=== PATIENT | male | born 1990 | race Caucasian/White ===

== ENCOUNTER 2017-07-07 15:56 | Emergency (ER) | payer SELFPAY ==
[2017-07-07 17:11] VITALS: BP 123/60
[2017-07-07] MEDS ORDERED: BOOSTRIX IM ONE (18:43)
--- NOTE | 2017-07-07 18:48 | Emergency Department Report ---
ED Laceration HPI - HPI Chief Complaint: Fall Stated Complaint: LAC TO LOWER BACK Time Seen by Provider: 07/07/17 18:38 Occurred When: Today Severity: mild Tetanus Status: Not up to Date Laceration Symptoms: No Foreign Body Sensation, No Numbness, No Weakness, No Pain Other History: This is a 26-year-old male nontoxic, well nourished in appearance , no acute signs of distress presents to the ED with c/o of superficial abrasion. Patient stated that he was on a glass table which broke and caused an abrasion to the right buttock region. Patient denies any numbness, tingling , fever, chills, nausea, vomiting, chest pain shortness of breath. Patient denies sensation of foreign body. Patient denies any allergies or significant past medical history. Denies tetanus. ED Review of Systems ROS: Stated complaint: LAC TO LOWER BACK Other details as noted in HPI Constitutional: denies: chills, fever Eyes: denies: eye pain, eye discharge, vision change ENT: denies: ear pain, throat pain Respiratory: denies: cough, shortness of breath, wheezing Cardiovascular: denies: chest pain, palpitations Endocrine: no symptoms reported Gastrointestinal: denies: abdominal pain, nausea, diarrhea Genitourinary: denies: urgency, dysuria Musculoskeletal: denies: back pain, joint swelling, arthralgia Skin: denies: rash, lesions Neurological: denies: headache, weakness, paresthesias Psychiatric: denies: anxiety, depression Hematological/Lymphatic: denies: easy bleeding, easy bruising ED Past Medical Hx - Past Medical History Previous Medical History?: Yes Additional medical history: Bronchitis - Surgical History Past Surgical History?: No - Social History Smoking Status: Never Smoker Substance Use Type: Non Opiate Pain - Medications Home Medications: Home Medications Medication Instructions Recorded Confirmed Last Taken Type Ibuprofen [Motrin] 800 mg PO Q8H PRN #14 tablet 12/11/13 Unknown Rx Ibuprofen [Motrin] 600 mg PO Q8H PRN #20 tablet 03/21/14 Unknown Rx traMADol [Ultram] 50 mg PO Q6HR PRN #14 tablet 03/21/14 Unknown Rx Ibuprofen [Motrin] 600 mg PO Q8H PRN #30 tablet 07/07/17 Unknown Rx Sulfamethoxazole/Trimethoprim 1 each PO BID #14 tablet 07/07/17 Unknown Rx [Bactrim DS TAB] Laceration Physical Exam - Exam General: Vital signs noted. No distress. Alert and acting appropriately. GENERAL: The patient is a well-developed, well-nourished in no apparent distress. Patient is alert and acting appropriately for age. Alert and oriented 3, no apparent distress, normal gait, atraumatic. HEENT: Head is normocephalic and atraumatic. PERRL, Extraocular muscles are intact. Pupils are equal, round, and reactive to light and accommodation. Nares appeared normal. Mouth is well hydrated and without lesions. Mucous membranes are moist. Posterior pharynx clear of any exudate or lesions. Mouth is well hydrated and without lesions. Tonsils not erythematous or swollen. Uvula midline. Tongue elevated. Mucous members are moist. Posterior pharynx clear, no exudate or lesions. Patent airways. NECK: Supple. No carotid bruits. No lymphadenopathy or thyromegaly.nontender. No meningitic signs are noted. LUNGS: Clear to auscultation. Non labor breathing. No intercostal retractions. Symmetrical with respiration, no wheezing, no rales, or crackles. HEART: Regular rate and rhythm without murmur, rubs or gallops. No reproducible. S1, S2 present, regular rate and rhythm without murmur, no rubs, no gallops. ABDOMEN: Soft, nontender, and nondistended. Positive bowel sounds. No hepatosplenomegaly was noted. No guarding or rebound tenderness, negative epigastric bruit. Negative psoas sign, negative wong sign, negative McBurneys sign EXTREMITIES: Without any cyanosis, clubbing, rash, lesions or edema. Peripheral pulses intact. Capillary refill less than 2 seconds. Full range of motion bilaterally. NEUROLOGIC: Cranial nerves II through XII are grossly intact. Alert and oriented x 3. Normal gait. Symmetrical strength and sensation. Reflexes 2+ throughout. Cerebellar testing normal. GCS score of 15. PSYCHIATRIC: Normal affect with no suicidal or homicidal ideations. Skin: 2 cm superficial laceration with no signs of foreign body. Wound Length (cm): 2 Laceration Location: Other (right upper buttock region) Full Body Front + Back: 1 - 2 cm superficial lacertation Laceration Exam: Yes Normal Distal CMS, No Foreign Body, No Exposed Tendon, Vessel, or Nerve, No Tendon Injury ED Course Vital Signs 07/07/17 17:08 Temperature 97.7 F Pulse Rate 61 Respiratory 18 Rate Blood Pressure 123/60 O2 Sat by Pulse 95 Oximetry - Reevaluation(s) Reevaluation #1: 07/07/17 18:45 Patient is speaking in full sentences with no signs of distress noted. - Laceration /Wound Repair Right Buttocks Wound Length (cm): 2 Wound's Depth, Shape: superficial Wound Explored: clean Irrigated w/ Saline (ccs): 40 Betadine Prep?: Yes Wound Repaired With: Dermabond Sterile Dressing Applied?: Yes Progress: Under sterile field, I used Betadine to clean the area. I then used 40 mL of normal saline to flush the area. I then dried the area clean and applied Dermabond. I then applied a sterile 4 x 4 with tape. Minimal bleeding noted but is under control. Patient tolerated procedure well with no signs of distress. ED Medical Decision Making - Medical Decision Making 26-year-old male that presents with laceration. Patient is stable and was examined by me. Upon examination it is very superficial and not deep at all and there is no foreign body on examination. Laceration has been successfully repaired with Dermabond. Sterile dressing has been applied. Patient is discharged with Bactrim and Motrin. Tetanus booster received. Patient was instructed to proper wound care. At time of discharge, the patient does not seem toxic or ill in appearance. No acute signs of distress noted. Patient agrees to discharge treatment plan of care. No further questions noted by the patient. Critical care attestation.: If time is entered above; I have spent that time in minutes in the direct care of this critically ill patient, excluding procedure time. ED Disposition Clinical Impression: Laceration Disposition: DC-01 TO HOME OR SELFCARE Is pt being admited?: No Does the pt Need Aspirin: No Condition: Stable Instructions: Laceration (ED), Skin Adhesive Care (ED), Ibuprofen (By mouth), Sulfamethoxazole/Trimethoprim (By mouth) Additional Instructions: Follow-up with a primary care doctor in 3-5 days or if symptoms worsen and continue return to emergency room as soon as possible. Prescriptions: Ibuprofen [Motrin] 600 mg PO Q8H PRN #30 tablet PRN Reason: Pain Sulfamethoxazole/Trimethoprim [Bactrim DS TAB] 1 each PO BID #14 tablet Referrals: PRIMARY CARE, [Referring] - 3-5 Days [facility] [Outside] - 3-5 Days TIN DÍAZ MD [Staff Physician] - 3-5 Days [facility] [Outside] - 3-5 Days
== END 2017-07-07 19:25 | disposition home or self-care (01) ==
LOC: ED 15:56
DX: S31.811A Laceration without foreign body of right buttock, initial encounter (principal); W25.XXXA Contact with sharp glass, initial encounter; Y93.89 Activity, other specified; Y92.89 Other specified places as the place of occurrence of the external cause; Y99.8 Other external cause status
CPT/HCPCS: 90471; 90715; 99282

== ENCOUNTER 2018-08-03 01:03 | Emergency (ER) | payer OTHER ==
[2018-08-03] MEDS ORDERED: TETRACAINE 0.5% OU ONE (04:06)
--- NOTE | 2018-08-03 04:41 | Emergency Department Report ---
<ANNY DIAZ - Last Filed: 08/03/18 05:35> ED Eye Problem HPI - General Chief complaint: Eye Problems Stated complaint: RIGHT EYE WAS SCRATCHED Source: patient Mode of arrival: Ambulatory Limitations: No Limitations - History of Present Illness Initial comments: Pt is a 27 yo male who presents with trauma to the right eye that occurred at 6PM. The patient states he was playing soccer and says that someone poked him directly in the eye. He says that it feels like his eye was scratched. He has redness and swelling to the right upper eyelid. He denies any discharge. Pt states the eye has been watering. The patient states his vision in the right eye has been cloudy since then. - Related Data Previous Rx's Medication Instructions Recorded Last Taken Type Ibuprofen [Motrin] 800 mg PO Q8H PRN #14 tablet 12/11/13 Unknown Rx Ibuprofen [Motrin] 600 mg PO Q8H PRN #20 tablet 03/21/14 Unknown Rx traMADol [Ultram] 50 mg PO Q6HR PRN #14 tablet 03/21/14 Unknown Rx Ibuprofen [Motrin] 600 mg PO Q8H PRN #30 tablet 07/07/17 Unknown Rx Sulfamethoxazole/Trimethoprim 1 each PO BID #14 tablet 07/07/17 Unknown Rx [Bactrim DS TAB] Allergies Allergy/AdvReac Type Severity Reaction Status Date / Time No Known Allergies Allergy Verified 12/10/13 23:17 ED Past Medical Hx - Past Medical History Previous Medical History?: Yes Additional medical history: Bronchitis - Surgical History Past Surgical History?: No - Social History Smoking Status: Current Every Day Smoker Substance Use Type: None - Medications Home Medications: Home Medications Medication Instructions Recorded Confirmed Last Taken Type Ibuprofen [Motrin] 800 mg PO Q8H PRN #14 tablet 12/11/13 Unknown Rx Ibuprofen [Motrin] 600 mg PO Q8H PRN #20 tablet 03/21/14 Unknown Rx traMADol [Ultram] 50 mg PO Q6HR PRN #14 tablet 03/21/14 Unknown Rx Ibuprofen [Motrin] 600 mg PO Q8H PRN #30 tablet 07/07/17 Unknown Rx Sulfamethoxazole/Trimethoprim 1 each PO BID #14 tablet 07/07/17 Unknown Rx [Bactrim DS TAB] ED Physical Exam - General Limitations: No Limitations ED Course - Reevaluation(s) Reevaluation #1: 08/03/18 04:00 Upon initial evaluation of the pt, immediately went over to the main ED to discuss with attending Dr. Murray, Dr. Murray will take over for this patient for further management and evaluation. Concern for globe rupture. ED Disposition Clinical Impression: Corneal injury Qualifiers: Encounter type: initial encounter Laterality: right Qualified Code(s): S05.8X1A - Other injuries of right eye and orbit, initial encounter Injury of globe of right eye Qualifiers: Encounter type: initial encounter Qualified Code(s): S05.91XA - Unspecified injury of right eye and orbit, initial encounter Disposition: DC/TX-65 PSY HOSP/PSY UNIT Condition: Stable Referrals: [facility] MD MYRANDA [Primary Care Provider] - 3-5 Days <ODILIA MURRAY - Last Filed: 08/03/18 06:10> ED Review of Systems ROS: Stated complaint: RIGHT EYE WAS SCRATCHED Other details as noted in HPI ED Physical Exam - General General appearance: alert, in no apparent distress - Head Head exam: Present: atraumatic, normocephalic - Eye Pupils: Present: irregular, other (about 1 cm raised corneal laceration with irr pupil on the right.) - ENT ENT exam: Present: mucous membranes moist - Neck Neck exam: Present: normal inspection - Respiratory Respiratory exam: Present: normal lung sounds bilaterally. Absent: respiratory distress - Cardiovascular Cardiovascular Exam: Present: regular rate, normal rhythm. Absent: systolic murmur, diastolic murmur, rubs, gallop - GI/Abdominal GI/Abdominal exam: Present: soft, normal bowel sounds - Rectal Rectal exam: Present: deferred - Extremities Exam Extremities exam: Present: normal inspection - Back Exam Back exam: Present: normal inspection - Neurological Exam Neurological exam: Present: alert, oriented X3 - Psychiatric Psychiatric exam: Present: normal affect, normal mood - Skin Skin exam: Present: warm, dry, intact, normal color. Absent: rash ED Course Vital Signs 08/03/18 08/03/18 01:11 06:03 Temperature 98.2 F 97.9 F Pulse Rate 68 60 Respiratory 18 18 Rate Blood Pressure 118/52 108/55 O2 Sat by Pulse 98 98 Oximetry - Reevaluation(s) Reevaluation #1: 08/03/18 06:08 corneal lac, possible globe inj. consulted Dr. Castillo at [facility], will txfr patient for opthalmology consult. Critical care attestation.: If time is entered above; I have spent that time in minutes in the direct care o f this critically ill patient, excluding procedure time. ED Disposition Is pt being admited?: No Does the pt Need Aspirin: No
[2018-08-03 06:05] VITALS: BP 108/55
== END 2018-08-03 06:42 ==
LOC: ED 01:03
DX: S05.8X1A Other injuries of right eye and orbit, initial encounter (principal); F17.200 Nicotine dependence, unspecified, uncomplicated; W51.XXXA Accidental striking against or bumped into by another person, initial encounter; Y93.66 Activity, soccer; Y92.89 Other specified places as the place of occurrence of the external cause; Y99.8 Other external cause status

== ENCOUNTER 2018-11-09 13:11 | Emergency (ER) | payer SELFPAY ==
--- NOTE | 2018-11-09 13:22 | Emergency Department Report ---
Blank Doc - Documentation Documentation: This is a 28-year-old male that presents with right upper arm pain and tingling sensation. Denies any injuries. Patient has history of rottar cuff injury. Stated has been lifting trees at work. This initial assessment/diagnostic orders/clinical plan/treatment(s) is/are subj ect to change based on patient's health status, clinical progression and re- assessment by fellow clinical providers in the ED. Further treatment and workup at subsequent clinical providers discretion. Patient/guardians urged not to elope from the ED as their condition may be serious if not clinically assessed and managed. Initial orders include: 1- Patient sent to [facility] for further evaluation and treatment
[2018-11-09] MEDS ORDERED: IBUPROFEN PO ONE (18:30)
--- NOTE | 2018-11-09 18:35 | Emergency Department Report ---
ED Upper Extremity Inj HPI - General Chief Complaint: Extremity Problem,Nontraumatic Stated Complaint: UPPER R ARM PAIN/ NUMBNESS Time Seen by Provider: 11/09/18 13:20 Source: patient Mode of arrival: Ambulatory Limitations: No Limitations - History of Present Illness Initial Comments: 28-year-old male comes in complaining of intermittent numbness and pain to his right upper arm since Friday. Patient denies any acute injuries. 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 Patient reports when he takes a Tylenol extra strength it helps. Patient reports this worse is when he has to work. Patient reports a past medical history of rotator cuff tear. He reports that it feels tight in his bicep.. Complaint: Injury to:: right, arm Onset/Timin -: days(s) Other Extremity Injury: Arm: Right Other Injuries: none Handedness: right Place: work Severity scale (0 -10): 5 Improves With: medication (Tylenol) Worsens With: movement of extremity (lifting) Associated Symptoms: numbness (intermittent) Treatments Prior to Arrival: other (Tylenol) - Related Data Previous Rx's Medication Instructions Recorded Last Taken Type Ibuprofen [Motrin] 800 mg PO Q8H PRN #14 tablet 12/11/13 Unknown Rx Ibuprofen [Motrin] 600 mg PO Q8H PRN #20 tablet 03/21/14 Unknown Rx traMADol [Ultram] 50 mg PO Q6HR PRN #14 tablet 03/21/14 Unknown Rx Ibuprofen [Motrin] 600 mg PO Q8H PRN #30 tablet 07/07/17 Unknown Rx Sulfamethoxazole/Trimethoprim 1 each PO BID #14 tablet 07/07/17 Unknown Rx [Bactrim DS TAB] Ibuprofen [Motrin 800 MG tab] 800 mg PO Q8HR PRN #30 tablet 11/09/18 Unknown Rx Allergies Allergy/AdvReac Type Severity Reaction Status Date / Time No Known Allergies Allergy Verified 12/10/13 23:17 ED Review of Systems ROS: Stated complaint: UPPER R ARM PAIN/ NUMBNESS Other details as noted in HPI Comment: All other systems reviewed and negative ED Past Medical Hx - Past Medical History Previous Medical History?: No Additional medical history: Bronchitis - Surgical History Past Surgical History?: No - Social History Smoking Status: Never Smoker Substance Use Type: None - Medications Home Medications: Home Medications Medication Instructions Recorded Confirmed Last Taken Type Ibuprofen [Motrin] 800 mg PO Q8H PRN #14 tablet 12/11/13 Unknown Rx Ibuprofen [Motrin] 600 mg PO Q8H PRN #20 tablet 03/21/14 Unknown Rx traMADol [Ultram] 50 mg PO Q6HR PRN #14 tablet 03/21/14 Unknown Rx Ibuprofen [Motrin] 600 mg PO Q8H PRN #30 tablet 07/07/17 Unknown Rx Sulfamethoxazole/Trimethoprim 1 each PO BID #14 tablet 07/07/17 Unknown Rx [Bactrim DS TAB] Ibuprofen [Motrin 800 MG tab] 800 mg PO Q8HR PRN #30 tablet 11/09/18 Unknown Rx ED Physical Exam - General Limitations: No Limitations General appearance: alert, in no apparent distress - Head Head exam: Present: atraumatic, normocephalic - Eye Eye exam: Present: normal appearance, EOMI - ENT ENT exam: Present: mucous membranes moist - Neck Neck exam: Present: normal inspection, full ROM. Absent: tenderness - Expanded Upper Extremity Exam Right Shoulder Exam: Present: normal inspection, full ROM. Absent: tenderness, s welling Upper Arm exam: Present: full ROM. Absent: tenderness, swelling Elbow exam: Present: normal inspection, full ROM. Absent: tenderness, swelling Forearm Wrist exam: Present: normal inspection, full ROM. Absent: tenderness, swelling Vascular: Present: normal capillary refill. Absent: vascular compromise - Back Exam Back exam: Present: normal inspection - Neurological Exam Neurological exam: Present: alert, oriented X3 - Psychiatric Psychiatric exam: Present: normal affect, normal mood - Skin Skin exam: Present: warm, dry, intact, normal color. Absent: rash ED Course Vital Signs 11/09/18 13:21 Temperature 98.1 F Pulse Rate 71 Respiratory 17 Rate Blood Pressure 144/75 O2 Sat by Pulse 98 Oximetry ED Medical Decision Making - Medical Decision Making 28-year-old male comes in for numbness and pain to the right upper arm since Friday. Patient was given ibuprofen for pain management during his visit. Patient will be discharged home on ibuprofen. Critical care attestation.: If time is entered above; I have spent that time in minutes in the direct care of this critically ill patient, excluding procedure time. ED Disposition Clinical Impression: Muscle strain, upper arm Disposition: DC-01 TO HOME OR SELFCARE Is pt being admited?: No Does the pt Need Aspirin: No Condition: Stable Additional Instructions: Take pain medication as needed. I recommended stretching before lifting. Follow-up with the orthopedic provider if symptoms persist or gets worse. Prescriptions: Ibuprofen [Motrin 800 MG tab] 800 mg PO Q8HR PRN #30 tablet PRN Reason: Pain , Severe (7-10) Referrals: WILLIAM FULTON [Primary Care Provider] - 3-5 Days Forms: Work/School Release Form(ED)
[2018-11-09 18:47] VITALS: BP 136/71
== END 2018-11-09 18:46 | disposition home or self-care (01) ==
LOC: ED 13:11
DX: S46.911A Strain of unspecified muscle, fascia and tendon at shoulder and upper arm level, right arm, initial encounter (principal); Z79.1 Long term (current) use of non-steroidal anti-inflammatories (NSAID); Z79.899 Other long term (current) drug therapy; X50.0XXA Overexertion from strenuous movement or load, initial encounter; Y93.89 Activity, other specified; Y92.89 Other specified places as the place of occurrence of the external cause; Y99.8 Other external cause status
CPT/HCPCS: 99282

== ENCOUNTER 2019-03-16 15:14 | Emergency (ER) | payer SELFPAY ==
--- NOTE | 2019-03-16 15:25 | Event Note ---
ED Screening Note Date of service: 03/16/19 Time: 15:22 ED Screening Note: This is a 28 y.o. M. that presents to the ER with left sided rib pain s/p fall 2 days ago. This initial assessment/diagnostic orders/clinical plan/treatment(s) is/are subject to change based on patients health status, clinical progression and re- assessment by fellow clinical providers in the ED. Further treatment and workup at subsequent clinical providers discretion. Patient/guardian urged not to elope from the ED as their condition may be serious if not clinically assessed and managed. Initial orders include: XR left ribs
--- NOTE | 2019-03-16 16:08 | XRay Report ---
Left RIBS with PA chest, 3 views INDICATION: Left-sided chest pain without trauma today FINDINGS: The ribs are intact with no fracture or bone lesion. Accompanying chest x-ray is unremarkab le with no pneumonia, pneumothorax or pleural effusion. IMPRESSION: Negative study Signer Name: Naun Rocha MD Signed: 03/16/2019 4:04 PM Workstation Name: [id number]
--- NOTE | 2019-03-16 18:39 | Emergency Department Report ---
ED General Adult HPI - General Chief complaint: Fall Stated complaint: RIB PAIN Time Seen by Provider: 03/16/19 15:22 Source: patient Mode of arrival: Ambulatory Limitations: No Limitations - History of Present Illness Initial comments: 28-year-old male with left sided chest wall pain 2 days. Patient states he was playing soccer, fell down, and another player fell on top of him. Patient reports pain and bruising in the area. Denies shortness of breath. -: days(s) (2) Location: chest Quality: aching Consistency: intermittent Improves with: immobilization Worsens with: movement, other (palpation) Associated Symptoms: denies: cough, shortness of breath Treatments Prior to Arrival: other (Tylenol) - Related Data Previous Rx's Medication Instructions Recorded Last Taken Type Ibuprofen [Motrin] 800 mg PO Q8H PRN #14 tablet 12/11/13 Unknown Rx Ibuprofen [Motrin] 600 mg PO Q8H PRN #20 tablet 03/21/14 Unknown Rx traMADol [Ultram] 50 mg PO Q6HR PRN #14 tablet 03/21/14 Unknown Rx Ibuprofen [Motrin] 600 mg PO Q8H PRN #30 tablet 07/07/17 Unknown Rx Sulfamethoxazole/Trimethoprim 1 each PO BID #14 tablet 07/07/17 Unknown Rx [Bactrim DS TAB] Ibuprofen [Motrin 800 MG tab] 800 mg PO Q8HR PRN #30 tablet 11/09/18 Unknown Rx Naproxen [Naprosyn] 500 mg PO BID #20 tablet 03/16/19 Unknown Rx methOCARBAMOL [Robaxin TAB] 500 mg PO Q8HR PRN #20 tablet 03/16/19 Unknown Rx Allergies Allergy/AdvReac Type Severity Reaction Status Date / Time No Known Allergies Allergy Verified 12/10/13 23:17 ED Review of Systems ROS: Stated complaint: RIB PAIN Other details as noted in HPI Comment: All other systems reviewed and negative Constitutional: denies: chills, fever Respiratory: denies: cough, shortness of breath Musculoskeletal: other (reports chest wall pain) ED Past Medical Hx - Past Medical History Previous Medical History?: No Additional medical history: Bronchitis - Surgical History Past Surgical History?: No - Social History Smoking Status: Never Smoker Substance Use Type: None - Medications Home Medications: Home Medications Medication Instructions Recorded Confirmed Last Taken Type Ibuprofen [Motrin] 800 mg PO Q8H PRN #14 tablet 12/11/13 Unknown Rx Ibuprofen [Motrin] 600 mg PO Q8H PRN #20 tablet 03/21/14 Unknown Rx traMADol [Ultram] 50 mg PO Q6HR PRN #14 tablet 03/21/14 Unknown Rx Ibuprofen [Motrin] 600 mg PO Q8H PRN #30 tablet 07/07/17 Unknown Rx Sulfamethoxazole/Trimethoprim 1 each PO BID #14 tablet 07/07/17 Unknown Rx [Bactrim DS TAB] Ibuprofen [Motrin 800 MG tab] 800 mg PO Q8HR PRN #30 tablet 11/09/18 Unknown Rx Naproxen [Naprosyn] 500 mg PO BID #20 tablet 03/16/19 Unknown Rx methOCARBAMOL [Robaxin TAB] 500 mg PO Q8HR PRN #20 tablet 03/16/19 Unknown Rx ED Physical Exam - General Limitations: No Limitations General appearance: alert, in no apparent distress - Head Head exam: Present: atraumatic, normocephalic - Eye Eye exam: Present: normal appearance - ENT ENT exam: Present: mucous membranes moist - Neck Neck exam: Present: normal inspection - Respiratory Respiratory exam: Present: normal lung sounds bilaterally, chest wall tenderness (left lateral chest wall). Absent: respiratory distress, decreased breath sounds - Cardiovascular Cardiovascular Exam: Present: regular rate, normal rhythm - GI/Abdominal GI/Abdominal exam: Present: soft. Absent: distended, tenderness - Extremities Exam Extremities exam: Present: normal inspection - Neurological Exam Neurological exam: Present: alert, oriented X3 - Psychiatric Psychiatric exam: Present: normal affect, normal mood - Skin Skin exam: Present: other (minimal bruising noted to the left lateral chest wall) ED Course Vital Signs 03/16/19 15:17 Temperature 98.4 F Pulse Rate 72 Respiratory 18 Rate Blood Pressure 140/76 O2 Sat by Pulse 96 Oximetry ED Medical Decision Making - Radiology Data Radiology results: report reviewed, image reviewed - Differential Diagnosis contusion, rib fracture, pneumothorax Critical care attestation.: If time is entered above; I have spent that time in minutes in the direct care of this critically ill patient, excluding procedure time. ED Disposition Clinical Impression: Chest wall contusion Disposition: - TO HOME OR SELFCARE Is pt being admited?: No Condition: Stable Instructions: Contusion in Adults (ED) Prescriptions: Naproxen [Naprosyn] 500 mg PO BID #20 tablet methOCARBAMOL [Robaxin TAB] 500 mg PO Q8HR PRN #20 tablet PRN Reason: Muscle Spasm Referrals: [facility] [Provider Group] - 3-5 Days Time of Disposition: 18:39
[2019-03-16 19:45] VITALS: BP 131/82
== END 2019-03-16 19:10 | disposition home or self-care (01) ==
LOC: ED 15:14
DX: S20.219A Contusion of unspecified front wall of thorax, initial encounter (principal); X58.XXXA Exposure to other specified factors, initial encounter; Y93.66 Activity, soccer; Y92.89 Other specified places as the place of occurrence of the external cause; Y99.8 Other external cause status